=== PATIENT | male | born 1990 | race Caucasian/White ===

== ENCOUNTER 2019-11-17 15:01 | Emergency (ER) | payer BC, SELFPAY ==
[2019-11-17 15:22] VITALS: BP 142/75; PULSE 62; RESP 19; TEMP 36.8; O2SAT 99; BMI 45.1
--- NOTE | 2019-11-17 15:26 | HMH.EDUTC ---
[facility] Disposition Clinical Impression: Upper respiratory infection Qualifiers: URI type: unspecified viral URI Qualified Code(s): J06.9 - Acute upper respiratory infection, unspecified Disposition: Home, Self-Care Condition on Discharge: Good Referrals: Titus Ventura [Primary Care Provider] - Forms: Work/School Release Time of Disposition: 15:32 Medical Decision Making - Rodri Inquiry Pt receiving controlled substance: No Vital Signs: 11/17/19 15:22 Temperature 98.2 F Temperature Source Oral Pulse Rate [Right Brachial] 62 Respiratory Rate 19 Blood Pressure [Right Arm] 142/75 H Blood Pressure Mean [Right Arm] 97 Blood Pressure Source [Right Arm] Automatic Cuff Blood Pressure Position [Right Arm] Sitting 02 Sat by Pulse Oximetry 99 Oxygen Delivery Method Room Air - Lab Data Lab results reviewed: Yes: I reviewed the patient's lab results. [facility] HPI - General Stated complaint: covid test Time Seen by Provider: 11/17/19 15:26 Mode of Arrival: Ambulatory Source of Information: Patient Limitations: No Limitations Description of Symptoms (Recalled from Triage Doc. by RN): PATIENT C/O WET COUGH AND SINUS DRAINAGE X 1 WEEK HEENT Symptoms (Recalled from RN notes): Yes Resp Symptoms (Recalled from RN notes): No Skin Symptoms (Recalled from RN notes): No MS Symptoms (Recalled from RN notes): No Functional Status (Recalled from RN notes): WNL - History of Present Illness Provider Complaint: Patient has had cough and sinus drainage for a week. No fever. No ear pain. No sore throat. No loss of taste or smell. No body aches. No vomiting or diarrhea. Needs note to return to work. Relieving factors: none Exacerbating factors: none Associated symptoms: denies other symptoms Treatments prior to arrival: none - Related Data Home Medications Medication Instructions Recorded Confirmed lisinopriL [Lisinopril 10mg Tab] 10 mg PO DAILY 07/22/18 07/22/18 Allergies Allergy/AdvReac Type Severity Reaction Status Date / Time No Known Allergies Allergy Verified 11/17/19 15:26 - Worker's Comp Is this a Worker's Comp case?: No [facility] History - Hepatitis A Screen Drug use history?: No High risk sexual behaviors?: No History of sexually transmitted infection?: No Currently employed?: No Childcare worker?: No Do you have indoor plumbing?: Yes Do you have electricity?: Yes Attestation statement:: This patient has been screened for Hepatitis A risk factors. I have reviewed the patient's past medical history: Yes Medical History: Denies:: Diabetes Mellitus Type 1, Diabetes Mellitus Type 2 - Social History Smoking Status: Former smoker Alcohol Intake: never Alcohol Intake Frequency:: holidays/special occasions only Occupational Status: other ROS Obtained: Yes All systems reviewed & no additional complaints - Constitutional Constitutional: Denies body ache, Denies chills, Denies fatigue, Denies fever(s), Denies lethargy, Denies malaise - Eyes Eyes: Denies eye discharge - ENT Ears, Nose, Mouth, and Throat: Denies otalgia, Denies nasal congestion, Denies sinus pressure, Denies sore throat - Respiratory Respiratory: No chest congestion, No dyspnea - Gastrointestinal Gastrointestingal: Denies: loose stools, vomiting Physical Exam - General General appearance: alert, in no apparent distress - Head Head exam: atraumatic, normocephalic, normal inspection - Eye Eye exam: Present: normal appearance, PERRL, EOMI - ENT ENT exam: Present: normal exam, normal oropharynx, mucous membranes moist, TM's normal bilaterally, normal external ear exam - Neck Neck exam: Present: normal inspection, full ROM, trachea midline. Absent: meningismus, lymphadenopathy - Chest Chest inspection: Present: normal inspection, symmetric chest wall rise. Absent: tenderness - Respiratory Respiratory exam: Present: normal lung sounds bilaterally. Absent: respiratory distress - Cardiovascular Cardi
[2019-11-17 15:34] VITALS: BP 142/75; PULSE 62; RESP 19; TEMP 36.8; O2SAT 99
== END 2019-11-17 15:35 | disposition home or self-care (01) ==
PROVIDERS: Emergency Provider Physician Assistant; PCP Family Medicine
DX: J06.9 Acute upper respiratory infection, unspecified (principal)
CPT/HCPCS: 99201

== ENCOUNTER → 2021-03-18 16:49 | Outpatient (CLI) | payer BC, SELFPAY | PROVIDERS: Visit Provider Nurse Practitioner Family | DX: Z20.822 Contact with and (suspected) exposure to COVID-19 (principal) | CPT/HCPCS: C9803; U0003; U0005 ==

== ENCOUNTER 2023-10-09 07:48 | Emergency (ER) | payer BC, SELFPAY ==
[2023-10-09] VITALS (9 sets, daily range): BP systolic 109–136; BP diastolic 56–83; PULSE 61–97; RESP 16–18; TEMP 36.9–37.7; O2SAT 93–98; BMI 48.8
--- NOTE | 2023-10-09 07:53 | PC.NURSE ---
staff at BS
--- NOTE | 2023-10-09 07:54 | PC.NURSE ---
DR BRAR AT BEDSIDE
--- NOTE | 2023-10-09 07:56 | CT_ITS ---
PROCEDURE INFORMATION: Exam: CT Abdomen And Pelvis With Contrast Exam date and time: 10/09/2023 8:37 AM Age: 33 years old Clinical indication: Abdominal pain; Generalized; Additional info: Abd pain/bloody diarrhea/fever, h/o uc TECHNIQUE: Imaging protocol: Computed tomography of the abdomen and pelvis with contrast. Radiation optimization: All CT scans at this facility use at least one of these dose optimization techniques: automated exposure control; mA and/or kV adjustment per patient size (includes targeted exams where dose is matched to clinical indication); or iterative reconstruction. Contrast material: ISOVUE; Contrast volume: 75 ml; Contrast route: IV; COMPARISON: ABDPELW CT abdomen pelvis w con 07/22/2018 10:50 PM FINDINGS: Lungs: Atelectasis in the lingula Liver: Normal. No mass. Gallbladder and biliary ducts: Gallstone in the gallbladder. Pancreas: Normal. No ductal dilation. Spleen: Normal. No splenomegaly. Adrenal glands: Normal. No mass. Kidneys and ureters: Normal. No hydronephrosis. Stomach and bowel: Low-attenuation bowel wall thickening is seen throughout the colon consistent with colitis. Differential diagnosis includes infectious and inflammatory etiologies.. Appendix: Normal appendix Intraperitoneal space: Unremarkable. No free air. No significant fluid collection. Vasculature: Unremarkable. No abdominal aortic aneurysm. Lymph nodes: Unremarkable. No enlarged lymph nodes. Urinary bladder: Unremarkable as visualized. Reproductive: Unremarkable as visualized. Bones/joints: Unremarkable. No acute fracture. Soft tissues: Unremarkable. IMPRESSION: 1. Low-attenuation bowel wall thickening is seen throughout the colon consistent with colitis. Differential diagnosis includes infectious and inflammatory etiologies.. 2. Gallstone in the gallbladder.
[2023-10-09] MEDS: ACETAMINOPHEN 1,000MG/100ML VIAL 1000 MG IV (08:09)
[2023-10-09] MEDS: ONDANSETRON 4MG/2ML VIAL 4 MG IV (08:09)
[2023-10-09] MEDS: PANTOPRAZOLE 40MG TABLET 40 MG PO (08:09)
[2023-10-09] MEDS: LACTATED RINGERS 1000ML 1,000 ML 999 ML IV ×2 (08:10→11:03)
[2023-10-09] MEDS: KETOROLAC 30MG/ML VIAL 15 MG IV (08:10)
--- NOTE | 2023-10-09 08:10 | ED_ITS ---
Discharge Plan Disposition Patient Disposition: Xfer Short-Term Hosp Condition: Good Chief Complaint: Nausea/Vomiting/Diarrhea Prescriptions Prescriptions: No Action losartan 25 mg tablet 25 mg PO DAILY simvastatin 10 mg tablet 10 mg PO DAILY Referrals Follow up/Referrals: Margo Lane APRN [Primary Care Provider] - See instructions Activity Restrictions/Add. Instructions Additional Instructions/Restrictions: Proceed directly to [facility] emergency department. [address], [place] [address]. 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 pain Time Seen by Provider: 10/09/23 07:54 History of Present Illness HPI narrative: This patient is a 33-year-old male with a history of ulcerative colitis not currently on medical management presenting to the emergency department for evaluation with concern for fever, cough, abdominal pain, nausea, and diarrhea since Wednesday. Patient reports that he has had numerous episodes of diarrhea that have now become bloody. His at home is having similar symptoms. He is having some bright red blood per rectum, but no melena. No vomiting noted. He notes his cough is very dry. He states he started to get better yesterday, but symptoms worsened overnight. His abdominal pain is mostly in his upper abdomen but sometimes he has pain in his lower abdomen as well. No other concerns noted at this time. He denies any significant NSAID use. Denies any history of gastric ulcers or GERD. Related Data Home Medications Medication Instructions Recorded Confirmed losartan 25 mg tablet 25 mg PO DAILY 03/18/21 10/09/23 simvastatin 10 mg tablet 10 mg PO DAILY 10/09/23 10/09/23 Allergies Allergy/AdvReac Type Severity Reaction Status Date / Time amoxicillin [From Augmentin] AdvReac tearful Verified 03/18/21 11:36 mood change clavulanic acid AdvReac tearful Verified 03/18/21 11:36 [From Augmentin] mood change [facility] Disclaimer: The information contained in this section may have been updated after the patient was seen, as this information can be updated by other users. Medical History (Updated 10/09/23 @ 11:02 by Margo Aparicio DO) Ulcerative colitis without complications Surgical History (Updated 10/09/23 @ 08:41 by Taty Harry RN) Hx of colonoscopy H/O vasectomy Social History Smoking Status: Never smoker alcohol intake: current alcohol intake frequency: holidays/special occasions only current occupational status: other Travel in the last 8 weeks: None ROS Obtained: Yes All systems reviewed & no additional complaints except as documented Physical Exam General General appearance: alert, in no apparent distress and obese Head Head exam: atraumatic and normocephalic Eye Eye exam: Present normal appearance, PERRL and EOMI ENT ENT exam: Present normal exam, normal oropharynx, mucous membranes moist and normal external ear exam Neck Neck exam: Present normal inspection, full ROM and trachea midline; Absent tenderness Chest Chest inspection: Present normal inspection and symmetric chest wall rise; Absent tenderness Respiratory Respiratory exam: Present normal lung sounds bilaterally; Absent respiratory distress, wheezes, stridor or accessory muscle use Cardiovascular Cardiovascular exam: Present regular rate and normal rhythm Abdominal Exam Abdominal exam: Present soft; Absent distention, tenderness or guarding Extremities Exam Extremities exam: Present normal inspection, full ROM and normal capillary refill; Absent tenderness or edema Back Exam Back exam: Present normal inspection and full ROM; Absent tenderness Neurological Exam Neurological exam: Present alert, oriented X3, CN II-XII intact and normal gait; Absent motor sensory deficit Psychiatric Psychiatric exam: Present normal affect and normal mood Skin Skin exam: Present warm and dry Medical Decision Making Medical Records Medical records reviewed: Yes I reviewed the patient's medical records. Rodri Inquiry Pt receiving controlled substance: No Vital Signs: 10/09/23 07:50 10/09/23 07:53 10/09/23 08:45 Temperature 99.9 F H Temperature Source Oral Pulse Rate 97 H 75 Pulse Rate [Right] 93 H Respiratory Rate 16 Blood Pressure 134/83 113/68 Blood Pressure [Right Arm] 134/83 Blood Pressure Mean [Right Arm] 100 Blood Pressure Source [Right Arm] Automatic Cuff 02 Sat by Pulse Oximetry 95 93 L 96 Oxygen Delivery Method Room Air Room Air 10/09/23 09:01 10/09/23 09:30 10/09/23 10:01 Temperature Temperature Source Pulse Rate 70 69 70 Pulse Rate [Right] Respiratory Rate Blood Pressure 109/60 L 126/70 109/77 L Blood Pressure [Right Arm] Blood Pressure Mean [Right Arm] Blood Pressure Source [Right Arm] 02 Sat by Pulse Oximetry 96 96 96 Oxygen Delivery Method Room Air 10/09/23 10:30 10/09/23 11:01 Temperature Temperature Source Pulse Rate 61 73 Pulse Rate [Right] Respiratory Rate Blood Pressure 128/74 116/56 L Blood Pressure [Right Arm] Blood Pressure Mean [Right Arm] Blood Pressure Source [Right Arm] 02 Sat by Pulse Oximetry 98 94 L Oxygen Delivery Method Lab Data Lab results reviewed: Yes I reviewed the patient's lab results. Lab Results 10/09/23 08:01: WBC 12.1 H, RBC 4.83, Hgb 13.8 L, Hct 42.0, MCV 86.9, MCH 28.7, MCHC 33.0, RDW 13.5, Plt Count 338, MPV 7.9, Neut % (Auto) 77.5, Lymph % (Auto) 16.3, [place] % (Auto) 5.0, Eos % (Auto) 0.8, Baso % (Auto) 0.4, Neut # (Auto) 9.4 H, Lymph # (Auto) 2.0, [place] # (Auto) 0.6, Eos # (Auto) 0.1, Baso # (Auto) 0.1, E SR 105 H, Sodium 138, Potassium 3.7, Chloride 104, Carbon Dioxide 25, Anion Gap 12.7, BUN 10, Creatinine 0.90, Estimated GFR 98, Est GFR ( Amer) 118, G lucose 109 H, Calcium 9.2, Total Bilirubin 0.5, AST 33, ALT 54, Alkaline Phosphatase 65, C-Reactive Protein 53.6 H, Total Protein 7.9, Albumin 4.3, G lobulin 3.6 H, Albumin/Globulin Ratio 1.2, Lipase 70 10/09/23 08:07: Urine Color Yellow, Urine Appearance Clear, Urine pH 6.0, Ur Specific [place] 1.025, Urine Protein Negative, Urine Glucose (UA) Negative, Urine Ketones Negative, Urine Blood 2+, Urine Nitrate Negative, Urine Bilirubin Negative, Urine Urobilinogen 0.2, Ur Leukocyte Esterase Negative, Urine RBC None, Urine WBC Occasional, Ur Squamous Epith Cells 3-5, Urine Bacteria Trace, Urine Mucus 1+, Stl Aeromonas (PCR) Not detected, Stl C. cayetanensis PCR Not detected, Stool Rotavirus (PCR) Not detected, Stl Adenov F 40/41 PCR Not detected, Stool Astrovirus (PCR) Not detected, Stool Campylobacter PCR Detected A, Stl C.difficile Tox PCR Not detected, Stool Cryptosporidium PCR Not detected, Stl E.coli Shiga Tox PCR Not detected, Stool E coli O157 PCR Not detected, Stl Enterotoxigenic E PCR Not detected, Stool EPEC (PCR) Not detected, Stool EAEC (PCR) Not detected, Stl E. histolytica PCR Not detected, Stool Giardia Lamblia PCR Not detected, Stool Salmonella PCR Not detected, Stool Sapovirus (PCR) Not detected, Stl P. shigelloides PCR Detected A, Stl Shigella/EIEC PCR Not detected, St Y.enterocolitica PCR Not detected, Stool Vibrio (PCR) Not detected, Stl Vibrio cholerae PCR Not detected, Stl Norovirus GI/GII PCR Not detected 10/09/23 08:12: Stool Occult Blood Positive A 10/09/23 08:01 10/09/23 08:01 Orders (Tests/Meds): ED MEDICATIONS Generic Name Dose Route Start Last Admin Trade Name Freq PRN Reason Stop Dose Admin Lactated Ringer's 1,000 mls @ 999 mls/hr 10/09/23 10:47 10/09/23 11:03 Lactated Ringer's 1000 Ml Bag IV 10/09/23 11:47 999 mls/hr .Q1H1M ONE Administration Discontinued Medications Generic Name Dose Route Start Last Admin Trade Name Freq PRN Reason Stop Dose Admin Acetaminophen 1,000 mg 10/09/23 08:02 10/09/23 08:09 Acetaminophen 1,000mg/100ml Vial IV 10/09/23 08:03 1,000 mg ONCE ONE Administration Lactated Ringer's 1,000 mls @ 999 mls/hr 10/09/23 08:02 10/09/23 08:10 Lactated Ringer's 1000 Ml Bag IV 10/09/23 09:02 999 mls/hr .Q1H1M ONE Administration Iopamidol 75 ml 10/09/23 08:43 10/09/23 08:44 Iopamidol-370 (76%);100ml Bottle IV 10/09/23 08:44 75 ml ONCE ONE Administration Ketorolac Tromethamine 15 mg 10/09/23 08:02 10/09/23 08:10 Ketorolac 30mg/Ml Vial IV 10/09/23 08:03 15 mg ONCE ONE Administration Levofloxacin 750 mg 10/09/23 10:47 10/09/23 11:03 Levofloxacin 750 Mg Tablet PO 10/09/23 10:48 750 mg ONCE ONE Administration Ondansetron HCl 4 mg 10/09/23 08:02 10/09/23 08:09 Ondansetron 4mg/2ml Vial IV 10/09/23 08:03 4 mg ONCE ONE Administration Pantoprazole Sodium 40 mg 10/09/23 08:02 10/09/23 08:09 Pantoprazole 40mg Tablet PO 10/09/23 08:03 40 mg ONCE ONE Administration Sodium Chloride 10 ml 10/09/23 08:43 10/09/23 08:44 Sodium Chloride 0.9% 10ml Syr (Rad Only) IV 10/09/23 08:44 10 ml ONCE ONE Administration ORDERS Category Date Time Status CT abdomen pelvis w con Stat Cat Scan 10/09/23 07:56 Completed XR chest 2V Stat Exams 10/09/23 08:11 Completed CRP [C-Reactive Protein] Stat Lab 10/09/23 08:01 Completed Complete Blood Count Auto Diff Stat Lab 10/09/23 08:01 Completed Comprehensive Metabolic Panel Stat Lab 10/09/23 08:01 Completed Diarrhea 23 Panel, PCR Stat Lab 10/09/23 08:07 Completed ESR [Erythrocyte Sedimentation Rate] Stat Lab 10/09/23 08:01 Completed Lipase Stat Lab 10/09/23 08:01 Completed Occult Blood,Stool Stat Lab 10/09/23 08:12 Completed UA [Urinalysis and Microscopic] Stat Lab 10/09/23 08:07 Completed Blood Culture Stat Micro 10/09/23 10:57 Received Medical Decision Narrative: In summary, this patient is a 33-year-old male presenting to the Emergency Department for evaluation of fever, abdominal pain, nausea, bloody diarrhea, and cough. Differential diagnoses considered include but are not limited to viral gastroenteritis, bacterial gastroenteritis, colitis, ulcerative colitis, dehydration, pneumonia. Ruling out the most morbid conditions drove assessment. It should be noted patient's history includes ulcerative colitis which may or may not be at goal therapy. This complicates all aspects of care by increasing patient's risk for morbidity. On exam, the patient is well-appearing with benign abdominal exam. Vitals are reassuring on cardiac telemetry. Since his at home is having similar symptoms, I favor infectious colitis as opposed to IBD. Workup included CBC, CMP, lipase, urinalysis, diarrhea panel, chest x-ray, and CT abdomen and pelvis with IV contrast. Patient was given a bolus of IV fluids as well as IV acetaminophen, Zofran, Toradol, and oral pantoprazole for symptomatic improvement. I independently interpreted CT scan and x-ray prior to the radiologist read and noted no obvious focal consolidation concerning for pneumonia. Patient does have findings concerning for colitis. Please see their read for final interpretation. Labs were obtained that demonstrated mild leukocytosis without other acutely concerning abnormalities. Hemoglobin is 13.8. His inflammatory markers including ESR and CRP are elevated. On reassessment, patient had good improvement after administration of as above. He is resting comfortably with benign abdominal exam and normal vital signs. CT scan again shows colitis, which could be inflammatory versus infectious. Since his at home is having similar symptoms, I favor infectious as a cause, especially since he reports he is a very mild UC and has not required follow-up since he was a teenager. Awaiting stool panel results to determine plan and disposition. Stool panel resulted and was positive for plesiomonas shigelloides as well as Campylobacter. On reassessment, patient continues to have cramping and diarrhea. Vitals have improved after fluid resuscitation and fever control. Given severity of diarrheal illness, I did administer Levaquin for the patient as well as a second bolus of IV fluids. Blood cultures were sent prior to initiation of antibiotics. At this time, I had a long discussion with the patient regarding disposition. He is high risk given his history of ulcerative colitis, though he is not on immunosuppression's. Given his severe diarrheal illness with systemic symptoms, patient would like to be admitted after extensive conversation. I had an interactive discussion with our hospitalist, Dr. Stallworth, who advised that he felt the patient would benefit from transfer to a facility with gastroenterology and infectious disease. Given this, I called and had an interactive discussion with Dr. Irving at [facility] who accepted the patient in transfer to [facility]. Family was advised of this and they are agreeable. They would like to go POV. I explained to them that they need to proceed directly there. Patient was provided with packet and disc and he left in stable condition to go POV to [facility] ER. Critical Care Critical Care Time Critical Care Time: No
--- NOTE | 2023-10-09 08:11 | XR_ITS ---
PROCEDURE INFORMATION: Exam: XR Chest Exam date and time: 10/09/2023 8:20 AM Age: 33 years old Clinical indication: Cough TECHNIQUE: Imaging protocol: Radiologic exam of the chest. Views: 2 views. COMPARISON: ABDPELW CT abdomen pelvis w con 07/22/2018 10:50 PM FINDINGS: Lungs: Unremarkable. No consolidation. Pleural spaces: Unremarkable. No pleural effusion. No pneumothorax. Heart/Mediastinum: Unremarkable. No cardiomegaly. Bones/joints: Unremarkable. IMPRESSION: No acute findings.
[2023-10-09 08:13] LABS: Basophils # 0.1 K/mm3 (0-0.2); Basophils % 0.4 % (0.1-2.0); Eosinophils # 0.1 K/mm3 (0.0-0.4); Eosinophils % 0.8 % (0.1-12.0); Hemoglobin 13.8 g/dL (14.1-18.0); Lymphocytes % 16.3 % (10-50); Mean Corpuscular Hemoglobin 28.7 pg (27.0-31.2); Mean Corpuscular Volume 86.9 fl (80-94); Mean Platelet Volume 7.9 fl (7.4-10.4); Monocytes # 0.6 K/mm3 (0.1-1.0); Neutrophils # 9.4 K/mm3 (1.8-7.8); Neutrophils % 77.5 % (37.0-80.0); Platelet Count 338 K/mm3 (142-424); Red Blood Count 4.83 M/mm3 (4.60-6.20); Red Cell Distribution Width 13.5 % (11.5-17.5); White Blood Count 12.1 K/mm3 (4.8-10.8)
[2023-10-09 08:19] LABS: Chloride 104 mmol/L (98-107); Potassium 3.7 mmoL/L (3.5-5.1); Sodium 138 mmol/L (136-145)
[2023-10-09 08:22] LABS: Alanine Aminotransferase 54 U/L (12-78); Albumin Level 4.3 g/dl (3.5-5.0); Albumin/Globulin Ratio 1.2 (1.1-1.8); Alkaline Phosphatase 65 U/L (38-126); Anion Gap 12.7 mEq/L (5-15); Aspartate Amino Transferase 33 U/L (17-59); Bilirubin,Total 0.5 mg/dl (0.2-1.3); Blood Urea Nitrogen 10 mg/dl (9-20); Calcium 9.2 mg/dl (8.4-10.2); Carbon Dioxide 25 mmol/L (22.0-30.0); Estimated Glomerular Filt Rate 98 ml/min (>60); GFR (African American) 118 ML/MIN (>60); Globulin 3.6 g/dL (1.3-3.2); Glucose 109 mg/dl (74-100); Lipase 70 U/L (23-300); Total Protein,Serum 7.9 g/dl (6.3-8.2)
[2023-10-09 08:22] LABS: Adenovirus F 40/41, stool Not Detected (NotDetected); Astrovirus Not Detected (NotDetected); Clostridium Difficile A/B, PCR Not Detected (NotDetected); Cryptosporidium Not Detected (NotDetected); Cyclospora Cayetanesis Not Detected (NotDetected); Entamoeba histolytica Not Detected (NotDetected); Enteroaggregative E coli Not Detected (NotDetected); Enteropathogenic E coli Not Detected (NotDetected); Enterotoxigenic E coli Not Detected (NotDetected); Giardia lamblia Not Detected (NotDetected); Microscopic, Urine URINE MICROSCOPIC (MICROSCOPIC); Norovirus Not Detected (NotDetected); Rotavirus A Not Detected (NotDetected); Salmonella, PCR Not Detected (NotDetected); Sapovirus Not Detected (NotDetected); Shiga-like toxin E coli Not Detected (NotDetected); Shigella Enterovasive E coli Not Detected (NotDetected); Vibrio Cholerae Not Detected (NotDetected); Vibrio, PCR Not Detected (NotDetected); Yersinia Entercolitica, PCR Not Detected (NotDetected)
[2023-10-09 08:23] LABS: Appearance,Urine CLEAR (Clear); Bilirubin,Urine Negative (Negative); Blood, Urine 2+ (Negative); Color,Urine YELLOW (Yellow); Glucose,Urine (UA) Negative (Negative); Ketones,Urine Negative (Negative); Leukocyte Esterase,Urine Negative (Negative); Nitrate,Urine Negative (Negative); Protein,Urine Negative (Negative); Specific Gravity, Urine 1.025 (1.005-1.030); Urobilinogen,Urine 0.2 EU/dl (0.2)
--- NOTE | 2023-10-09 08:28 | PC.NURSE ---
PT TO CT
--- NOTE | 2023-10-09 08:28 | PC.NURSE ---
pt to CT at this time
[2023-10-09 08:29] LABS: Bacteria,Urine Trace /lpf; Mucus,Urine 1+ /lpf; WBC,Urine Occasional #/hpf (0-3)
--- NOTE | 2023-10-09 08:43 | PC.NURSE ---
Pt back in room from CT scan. Placed back on hemodynamic monitoring. Pt reports nausea is improved.
[2023-10-09] MEDS: IOPAMIDOL-370 (76%);100ML BOTTLE 75 ML IV (08:44)
[2023-10-09] MEDS: SODIUM CHLORIDE 0.9% 10ML SYR (RAD ONLY) 10 ML IV (08:44)
[2023-10-09 09:25] LABS: Occult Blood,Stool Positive (Negative)
[2023-10-09 09:35] LABS: C-Reactive Protein 53.6 mg/L (0-4)
--- NOTE | 2023-10-09 10:03 | PC.NURSE ---
pt sitting up in bed. no requests voiced at this time.
[2023-10-09 10:10] LABS: Erythrocyte Sedimentation Rate 105 mm/hr (0-15)
[2023-10-09 10:34] LABS: Campylobacter Detected (NotDetected); Plesimonas Shigalloides, PCR Detected (NotDetected)
--- NOTE | 2023-10-09 10:41 | PC.NURSE ---
DR BRAR AT BEDSIDE TO UPDATE PT AND FAMILY
--- NOTE | 2023-10-09 10:56 | PC.NURSE ---
DR BRAR SPEAKING WITH DR THOMAS FOR ADMISSION
--- NOTE | 2023-10-09 10:58 | PC.NURSE ---
Dr. Aparicio at bedside discussing possible tx with pt
--- NOTE | 2023-10-09 10:58 | PC.NURSE ---
DR BRAR AT BEDSIDE TO UPDATE PT AND FAMILY
[2023-10-09] MEDS: levoFLOXacin 750 MG TABLET PO (11:03)
--- NOTE | 2023-10-09 11:08 | PC.NURSE ---
DR BRAR SPEAKING WITH [facility]
--- NOTE | 2023-10-09 11:11 | PC.NURSE ---
DR BRAR AT BEDSIDE TO UPDATE PT AND FAMILY
--- NOTE | 2023-10-09 11:25 | PC.NURSE ---
Report given to PEG Orellana at [facility].
[2023-10-13 11:04] LABS: Calprotectin, Fecal 1310 ug/g (0-120)
== END 2023-10-09 11:32 | disposition short-term general hospital (02) ==
PROVIDERS: Emergency Provider Emergency Medicine; PCP Nurse Practitioner Family
DX: A04.5 Campylobacter enteritis (principal); A03.8 Other shigellosis; A06.0 Acute amebic dysentery; R10.84 Generalized abdominal pain; R50.9 Fever, unspecified; K80.20 Calculus of gallbladder without cholecystitis without obstruction; R19.5 Other fecal abnormalities
CPT/HCPCS: 71046; 74177; 80053; 81001; 82272; 83690; 83993; 85025; 85651; 86140; 87040; 87507; 96361; 96374; 96375; 99285; G0328; J0131; J1885; J2405; J7120; Q9967

== ENCOUNTER 2024-07-23 16:45 | Emergency (ER) | payer BC, SELFPAY ==
[2024-07-23 16:51] VITALS: BP 162/89; PULSE 80; O2SAT 97
--- OUTSIDE RECORDS SUMMARY | 2024-07-23 16:52 | XMS_ITS | Data Portability ---
Author Organization [facility] [place] Address [address] [place] [address] Care Team Providers Care Train Gateman Name Role Phone SAMM VALDOVINOS Primary Care Provider [phone] Assessment No assessment recorded. Plan of Treatment Reminders Order Date Submit Date Provider Last Modified By Organization Details Last Modified Time Details Appointments None recorded. Lab None recorded. Referral None recorded. Procedures None recorded. Surgeries vasectomy (SURG) 2022 023 [email or web address] [facility] Professional Charges, [address], [facility] [address], [place], [address], 3 14:32:38 Imaging None recorded. Medication Orders Bactrim DS 800 mg-160 mg tablet 2022 023 [facility], [address] [place] [address], [id number], 3 16:00:45 Percocet 7.5 mg-325 mg tablet 2022 023 [facility], [address] [place] [address], [id number], 3 16:00:42 Patient TargetsNo targets recorded. Patient Instructions Encounter Date Encounter Id Patient Instructions Last Modified By Organization Details Last Modified Time 08/24/2022 [id number] learning about healthy weight [email or web address] Not available 08/30/2022 18:14:45 DISCUSSION OF VASECTOMY : I explained vasectomy is one of the most effective methods of sterilization but is not a guarentee of sterilization. I explained that there are rare failures.I explained the method of performing a vasectomy. I have discussed postoperative instructions including reducing activity, the use of ice packs,use of oral analgesics as prescribed, activity and intercourse restrictions. He understands he is to use protected intercourse until further notice.Risks include but are not limited to bleeding, infection, swelling, bruising, hematoma, injury, damage or harm to testicle(s) or other interscrotal structures, possible anesthetic risks, possible general medical risks and and possible sperm granuloma. enrico Not available 08/30/2022 18:14:35 Reason for Referral None Reported. Procedures Surgical History Date Name Laterality Status Provider Name and Address Organization Details Recorded Time 11/13/2022 Vasectomy completed BJ PENNINGTON JR, MD [address] [place] [address], [phone], [facility] 11/13/2022 15:58:57 Imaging Results None recorded. Procedure Notes None recorded. Medical Equipment None Reported. Allergies No known drug allergies Medications Name Sig Start Date Stop Date Status Note LastModified by Organization Details LastModified Time Percocet 7.5 mg-325 mg tablet Take 1 tablet every 6 hours by oral route as needed. 023 active Not Available Not Available Not Avai lable Bactrim DS 800 mg-160 mg tablet Take 1 tablet every 12 hours by oral route. 023 active Not Available Not Available Not Avai lable losartan active Not Available Not Avai lable Not Available Vitals Date Recorded Body height Body mass index (BMI) Body weight Provider Name and Address Organization Details Last Updated DateTime 08/24/2022 182.88 cm 46.8 kg/m2 678243.37 g Dianelysedna Jairo [facility] 08/24/2022 18:27:32 Social History Question Answer Notes LastModified by Organizat ion Details LastModified Time Tobacco Smoking Status Never Smoker Milagros Jairo sauer [facility] 08/24/2022 18:28:14 What Is Your Level Of Alcohol Consumption? None Information not available 08/24/2022 What Was The Date Of Your Most Recent Tobacco Screening? 08/24/2022 Information not available 08/24/2022 What Is Your Relationship Status? Information not available 08/24/2022 Do You Or Have You Ever Used Smokeless Tobacco? Former Smokeless Tobacco User Information not available 08/24/2022 Do You Or Have You Ever Used Any Other Forms Of Tobacco Or Nicotine? Yes Information not available 08/24/2022 Sex: Unknown Functional Status None recorded. Mental Status None recorded. Family History Relationship Description Onset Age of this Age Resolved Age Notes LastModified by Organization Details LastModified Time Father No current problems or disability Not available 08/24 18:27:53 Mother No current problems or disability Not available 08/24 18:27:53 Medical History Condition Response Hypertension Y Sleep Apnea Y Past Encounters Encounter ID Performer Location Encounter Start Date Encounter Closed Date Diagnosis/Indication Diagnosis SNOMED-CT Code Diagnosis ICD10 Code Diagnosis Note [id number] BJ PENNINGTON JR, MD [facility] [address] [facility],[address] [address] 08/24/2022 15:11:06 08/31/2022 04:09:51 Male sterilization 933204621 Z30.2 [id number] BJ PENNINGTON JR, MD SURGERY SCHEDULE [address] [place] [address] 11/13/2022 13:27:00 11/13/2022 13:29:52 Male sterilization 515319077 Z30.2 Health Concerns Section Related Observation LastModified by Organization Detai ls LastModified Time None Recorded Concern Status LastModified by Organization Details LastModified Time None Recorded Advance Directives Directive None Recorded Payers Encounter Date Sequence Insurance Name Policy Number Policy Gonzalez Covered Member ID Gonzalez Member ID Guarantor Name 08/24/2022 1 [place] [employer] [place] [employer] ([facility]) [id number] Brenton Han [id number] Tate Han 11/13/2022 1 [place] [employer] ([facility]) [id number] Brenton Han [id number] Tate Han Notes Date Note Type Note Provider Name and Address Organization Details Recorded Time 08/24/2022 text/html Patient is in to day for consideration of vasectomy. His two children and is . He and his does our permanent sterilization. He denies any history of scrotal surgery or trauma. BJ PENNINGTON JR, MD [address] [place] [address] [place], [address], [facility] 08/30/2022 18:14:48 11/13/2022 text/html Patient is in to day for consideration of vasectomy. His two children and is . He and his does our permanent sterilization. He denies any history of scrotal surgery or trauma. BJ PENNINGTON JR, MD [facility] [place], [address], [facility] 11/13/2022 16:16:16
[2024-07-23 16:53] VITALS: BP 162/89; PULSE 84; RESP 13; TEMP 36.9; O2SAT 95; BMI 46.9
--- NOTE | 2024-07-23 17:00 | ED_ITS ---
Discharge Plan Disposition Patient Disposition: Home, Self-Care Chief Complaint: Wound/Laceration Prescriptions Prescriptions: No Action losartan 25 mg tablet 25 mg PO DAILY simvastatin 10 mg tablet 10 mg PO DAILY Referrals Follow up/Referrals: Margo Lane APRN [Primary Care Provider] - See instructions Activity Restrictions/Add. Instructions Additional Instructions/Restrictions: Do not submerge stitches for 48 hours. You are okay to shower. Do not scrub the stitches. Be sure to use moist washcloth and pat to clean, pat dry. Stitches will dissolve in 7 to 10 days. Clinical Impressions Clinical Impression: Laceration of scalp Instructions Patient Instructions: DI for Laceration Repair Print Language Print Language: Irish Discharge ED Provider: Mannie Casillas General Adult HPI General Chief complaint: Wound/Laceration Stated complaint: AO 07/23/24 1615 laceration to head Time Seen by Provider: 07/23/24 16:48 Mode of Arrival: Ambulatory Source of Information: Patient Description of Symptoms (Recalled from ER Triage Doc. by RN): pt presents to ED with c/o laceration to left side of head. 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 incident occurred approx 30 mins ago. no LOC. unknown last tetanus. History of Present Illness HPI narrative: Please note that above description of symptoms, in this electronic medical record under categorization of recalled from ER triage doctor by RN are reflective of an initial nursing assessment, however, is not reflective of my full history and physical exam that was personally taken and clarified. Consequentially, this preceding description of symptoms, which may include the patient's categorized chief complaint in the EMR, do not reflect my personal clinical impression, and the ultimate description of history of present illness and patient stated complaints should be deferred to this section of the note. Unless stated otherwise or congruent with this section of the note, additional signs, symptoms, or incongruence should be interpreted as inaccurate with my clinical impression. Related Data Home Medications ?Medication ?Instructions ?Recorded ?Confirmed losartan 25 mg tablet 25 mg PO DAILY 03/18/21 10/09/23 simvastatin 10 mg tablet 10 mg PO DAILY 10/09/23 10/09/23 Allergies Allergy/AdvReac Type Severity Reaction Status Date / Time amoxicillin (From Augmentin) AdvReac tearful Verified 03/18/21 11:36 mood change clavulanic acid (From AdvReac tearful Verified 03/18/21 11:36 Augmentin) mood change [facility] Disclaimer: The information contained in this section may have been updated after the patient was seen, as this information can be updated by other users. Medical History (Updated 07/23/24 @ 17:30 by Mannie Casillas MD) Ulcerative colitis without complications Surgical History (Updated 10/09/23 @ 08:41 by Taty Harry RN) Hx of colonoscopy H/O vasectomy Social History Smoking Status: Never smoker alcohol intake: current alcohol intake frequency: holidays/special occasions only current occupational status: other Travel in the last 8 weeks: None Have you lived/traveled outside US in past 30 days?: No Contact w/someone who lives/traveled outside US past 30 days?: No Exposure to someone with infectious disease in past 14 days?: No Do you have a fever (greater than 100.4 F or 38 C)?: No Have you tested positive for COVID-19: No Exposed to someone with COVID-19 in past 14 days?: No Do you have a sore throat?: No Do you have a cough?: No Do you have any weakness?: No Do you have any diarrhea?: No Are you experiencing any unusual bleeding?: No Do you have any muscle aches/pain?: No Do you have any abdominal pain?: No Are you experiencing loss of taste or smell?: No Other Medical History Have you received the Pneumonia Vaccine: No ROS Obtained: Yes All systems reviewed & no additional complaints except as documented Physical Exam General General appearance: alert Head Head exam: normocephalic and other (laceration R scalp) Eye Eye exam: Present normal appearance, PERRL and EOMI Neck Neck exam: Present normal inspection, full ROM and trachea midline Respiratory Respiratory exam: Absent respiratory distress, wheezes, stridor, accessory muscle use or prolonged expiratory phase Cardiovascular Cardiovascular exam: Present other (Pulses equal symmetric in upper and lower extremities) Abdominal Exam Abdominal exam: Present soft; Absent distention, tenderness or pulsatile mass Extremities Exam Extremities exam: Absent edema Neurological Exam Neurological exam: Present alert, oriented X3 and CN II-XII intact; Absent motor sensory deficit Skin Skin exam: Present warm and dry; Absent diaphoresis or erythema Medical Decision Making Medical Records Medical records reviewed: Yes I reviewed the patient's medical records. Screening: Per USPSTF and CDC recommendations, given the prevalence of disease in our region, it is our hospital?s policy to screen for HIV and viral Hepatitis for all patients aged 18 and over and those with ongoing risk factors. Rodri Inquiry Pt receiving controlled substance: No Rordi was queried for this patient: No Vital Signs: 07/23/24 16:51 07/23/24 16:53 Temperature 98.4 F Temperature Source Oral Pulse Rate 80 Pulse Rate [Left Radial] 84 Respiratory Rate 13 Blood Pressure 162/89 H Blood Pressure [Right Arm] 162/89 H Blood Pressure Mean [Right Arm] 113 Blood Pressure Source Automatic Cuff 02 Sat by Pulse Oximetry 97 95 Oxygen Delivery Method Room Air Room Air Orders (Tests/Meds): ED MEDICATIONS Discontinued Medications Generic Name Dose Route Start Last Admin Trade Name Freq PRN Reason Stop Dose Admin Lidocaine HCl 20 ml 07/23/24 16:55 Lidocaine 2% 20ml Vial IJ 07/23/24 16:56 ONCE ONE Tetanus/Reduced Diphtheria/Acell Pertussis 0.5 ml 07/23/24 16:55 Tet/Diphth/Pert-Adult 0.5ml Syringe IM 07/23/24 16:56 .ONCE ONE Medical Decision Narrative: 34-year-old male presenting for scalp laceration. He was holding a fence post, it came down on the top of his head and rotational motion and cut his scalp. No loss of conscious. No other trauma sustained. Does not member his last tetanus shot. Currently no pain or discomfort. No spine discomfort, no other complaints. Not on blood thinners. History obtained with patient and . On physical exam, very clinically well. He has a 3 cm laceration on the right side of his parietal scalp that is hemostatic. Clean, uncomplicated. Patient given Tdap, lidocaine locally, irrigated, closed with sutures. Because patient at baseline without signs or symptoms of clinical decompensation, deemed appropriate for discharge. Results were relayed to patient who voiced understanding and were agreeable to outpatient management and follow up. I discussed my clinical impression with patient and answered all questions. At this time, the evidence for any other entities in the differential is insufficient to warrant any further testing or ED observation. This was explained as well. Advisory was given that persistent or worsening symptoms require further evaluation. I confirmed the understanding of this discussion. Reproductive Endocrinologist disclaimer Much of this encounter note is an electronic ict quality assurance engineer spoken language to printed text. Electronic ict quality assurance engineer of the spoken language may permit errors. Although I have reviewed the note, some errors may still exist. Procedures Laceration Laceration 1: Site: scalp Side (If applicable): right Size (cm): 3 Description: linear and irregular Depth: involves subcutaneous layer Local Anesthetic: lidocaine 1% Amount of anesthesia used (mL): 8 Pre-repair: wound explored, irrigated extensively and deep structures intact Skin layer closed with: vicryl Size (cm): 3-0 Number of sutures: 7 Technique: simple, interrupted Critical Care Critical Care Time Critical Care Time: No
[2024-07-23] MEDS: TET/DIPHTH/PERT-ADULT 0.5ML SYRINGE 0.5 ML IM (17:32)
[2024-07-23] MEDS: LIDOCAINE 2% 20ML VIAL 20 ML IJ (17:42)
[2024-07-23 17:44] VITALS: BP 125/85; PULSE 84; RESP 19; TEMP 36.7; O2SAT 96
== END 2024-07-23 17:45 | disposition home or self-care (01) ==
PROVIDERS: Emergency Provider Emergency Medicine; PCP Nurse Practitioner Family
DX: S01.01XA Laceration without foreign body of scalp, initial encounter (principal); W20.8XXA Other cause of strike by thrown, projected or falling object, initial encounter; Z23 Encounter for immunization
CPT/HCPCS: 12002; 90471; 99283; 90715

== ENCOUNTER 2025-01-18 10:15 | Outpatient (CLI) | payer BC, SELFPAY ==
--- NOTE | 2025-01-18 10:17 | US_ITS ---
FINAL REPORT CLINICAL HISTORY: SOFT TISSUE DISORDER // pt has palp area x 10 yrs FINDINGS: Limited sonographic images were obtained of the soft tissues in the left neck at the area of reported palpable abnormality. There is an oval hypoechoic subcutaneous nodule at the area of interest measuring 14 mm. It shows internal echoes, but there is posterior acoustic enhancement. No internal blood flow. IMPRESSION: Avascular lesion at the area of interest favored to represent sebaceous cyst. Reviewed, Interpreted and Dictated by Iona Werner MD Transcribed by María Romero Authenticated and [facility]
== END 2025-01-18 23:59 | disposition home or self-care (01) ==
LOC: RAD 10:15
PROVIDERS: PCP Nurse Practitioner Family; Visit Provider Nurse Practitioner Family
DX: M79.89 Other specified soft tissue disorders (principal); R93.89 Abnormal findings on diagnostic imaging of other specified body structures
CPT/HCPCS: 76536